=== PATIENT | male | born 1985 | race Caucasian/White ===

== ENCOUNTER 2025-07-10 13:50 | Emergency (ER) | payer OTHER ==
[~2025-07-10] VITALS: Ht 170.2 cm; Wt 83.9 kg
[2025-07-10 14:01] VITALS: BP 104/72; TEMP 98.8
[2025-07-10] MEDS ORDERED: DIBU30OI RC (14:38)
[2025-07-10] MEDS ORDERED: HYDR25SU33 RC (14:38)
[2025-07-10] MEDS ORDERED: PSYL0.5211 PO (14:39)
[2025-07-10] MEDS ORDERED: [UNRECOGNIZED DRUG - CODE] MC (14:39)
[2025-07-10 14:41] VITALS: O2SAT 97
== END 2025-07-10 14:42 | disposition home or self-care (01) ==
LOC: ER 13:57
DX: K64.4 Residual hemorrhoidal skin tags (principal); F19.10 Other psychoactive substance abuse, uncomplicated; Z87.19 Personal history of other diseases of the digestive system